=== PATIENT | female | born 1950 | race Caucasian/White ===

== ENCOUNTER → 2021-05-08 | Outpatient (CLI) | payer OTHER | END | disposition home or self-care (01) | LOC: OIH 11:12 | PROVIDERS: ATTEND Internal Medicine Cardiovascular Disease | DX: Z13.6 Encounter for screening for cardiovascular disorders (principal) | CPT/HCPCS: 75571 ==

== ENCOUNTER → 2021-05-27 | Outpatient (CLI) | payer MEDICARE ==
[~2021-05-27] MED LIST: REGADENOSON 0.4 MG/5 ML PF SYG IVP SCH
== END | disposition home or self-care (01) ==
LOC: SHCH 09:52
PROVIDERS: ATTEND Internal Medicine Cardiovascular Disease
DX: R93.1 Abnormal findings on diagnostic imaging of heart and coronary circulation (principal); I10 Essential (primary) hypertension; I73.9 Peripheral vascular disease, unspecified; E78.5 Hyperlipidemia, unspecified; Z95.828 Presence of other vascular implants and grafts; Z82.49 Family history of ischemic heart disease and other diseases of the circulatory system
CPT/HCPCS: 78452; 93017; 96374; A9500 ×2; J2785

== ENCOUNTER 2021-08-28 15:13 | Observation (INO) | payer MEDICARE ==
[~2021-08-28] VITALS: Ht 157.5 cm; Wt 59.9 kg
[~2021-08-28 15:13] MED LIST changes: +AEC81 PO; +AMLO-257 PO; +CILO100T PO; +CLOP75TA14 PO; +EZET10TA48 PO; +LISI20TA24 PO; +METO-408 PO; -REGADENOSON 0.4 MG/5 ML PF SYG IVP SCH; +VENL75 PO
[2021-08-28 15:51] LABS: BASOPHILS % (AUTO) 0.3 % (0.0-5.0); EOSINOPHILS % (AUTO) 3.5 % (0.0-8.0); HEMATOCRIT 24.2 % (36-48); LYMPHOCYTES % (AUTO) 22.4 % (21.0-51.0); MEAN CORPUSCULAR HEMOGLOBIN 28.8 pg (27.0-33.0); MEAN CORPUSCULAR VOLUME 93.1 fL (79-99); MONOCYTES % (AUTO) 11.4 % (3.0-13.0); NEUTROPHILS % (AUTO) 61.7 % (40.0-77.0); PLATELET COUNT (AUTO) 374 K/uL (130-400); RED CELL DISTRIBUTION WIDTH 14.3 % (11.0-15.5); WHITE BLOOD COUNT (AUTO) 6.9 K/uL (4.8-10.8)
[2021-08-28 15:52] LABS: APPEARANCE,URINE Cloudy (CLEAR); BILIRUBIN,URINE Negative (NEGATIVE); COLOR,URINE Yellow (YELLOW); GLUCOSE, URINE (UA) Negative (NEGATIVE); KETONES,URINE Trace mg/dL (NEGATIVE); LEUKOCYTE ESTERASE ,URINE Large (NEGATIVE); NITRATE,URINE Negative (NEGATIVE); OCCULT BLOOD,URINE Negative (NEGATIVE); PROTEIN,URINE Trace mg/dL (NEGATIVE)
[2021-08-28 16:00] LABS: POTASSIUM 3.9 mmol/L (3.5-5.1)
[2021-08-28] MEDS ORDERED: CEFTRIAXONE 1G VIAL IVP ONE (16:00)
[2021-08-28 16:01] LABS: PROTHROMBIN TIME 10.9 SEC (9.6-11.6)
[2021-08-28 16:03] LABS: PARTIAL THROMBOPLASTIN TIME 27.3 SEC (26.3-35.5)
[2021-08-28 16:08] LABS: BACTERIA,URINE Few /HPF (None Seen); MUCUS,URINE Few LPF (None Seen); SQUAMOUS EPITHELIAL CELL,UR Few /HPF (0-2); WBC,URINE 26-50 /HPF (0-1)
[2021-08-28 16:10] LABS: ALBUMIN 3.3 g/dL (3.5-5.0); BILIRUBIN,TOTAL 0.3 mg/dL (0.2-1.0); TOTAL PROTEIN, SERUM 7.8 g/dL (6.0-8.3)
[2021-08-28] MEDS ORDERED: CILO100T PO (17:15)
[2021-08-28] MEDS ORDERED: VENL75 PO (17:15)
[2021-08-28] MEDS ORDERED: AEC81 PO (17:15)
[2021-08-28] MEDS ORDERED: ZINC50CA2 PO (17:15)
[2021-08-28] MEDS ORDERED: AMLO-257 PO (17:15)
[2021-08-28] MEDS ORDERED: LISI20TA24 PO (17:15)
[2021-08-28] MEDS ORDERED: EZET10TA48 PO (17:15)
[2021-08-28] MEDS ORDERED: METO-408 PO (17:15)
[2021-08-28] MEDS ORDERED: DORZ10DR10 OP (17:16)
[2021-08-28] MEDS ORDERED: BIOT10006 PO (17:16)
[2021-08-28] MEDS ORDERED: UBID200C18 PO (17:16)
[2021-08-28] MEDS: 0.9%NACL 1000ML 1,000 ML IV SCH (18:22)
[2021-08-28] MEDS: PANTOPRAZOLE 40 MG/VIAL IVP SCH (18:22)
[2021-08-28] MEDS ORDERED: ONDANSETRON 4MG INJ IV PRN (21:30)
[2021-08-28] MEDS ORDERED: KCL 20 MEQ ERTAB PO PRN (21:30)
[2021-08-28] MEDS ORDERED: LACTULOSE 20 GM/30 ML UDCUP PO PRN (21:30)
[2021-08-28] MEDS ORDERED: POTASSIUM CHLORIDE 10% ELIXIR 20 MEQ/15 ML UDCUP PO PRN (21:30)
[2021-08-28] MEDS ORDERED: MAG/ALUM/SIMETH 30 ML UDCUP PO PRN (21:30)
[2021-08-28] MEDS ORDERED: POTASSIUM CHLORIDE 20MEQ/100ML 100 ML IV PRN ×2 (21:30)
[2021-08-28] MEDS ORDERED: DiphenhydrAMINE HCL 50 MG/ML VIAL IV PRN (21:30)
[2021-08-28] MEDS ORDERED: LIDOCAINE HCL-MPF 1% 2ML VIAL IV PRN ×2 (21:30)
[2021-08-28] MEDS: CEFTRIAXONE 1G VIAL IV SCH (21:30)
[2021-08-28] MEDS ORDERED: ACETAMINOPHEN 325 MG TAB PO PRN ×2 (21:30)
[2021-08-28 21:35] LABS: HEMATOCRIT 25.6 % (36-48)
[2021-08-29] VITALS (21 sets, daily range): BP systolic 119–161; BP diastolic 63–85
[2021-08-29 01:45] LABS: HEMATOCRIT 24.1 % (36-48)
[2021-08-29] MEDS ORDERED: ATOR40TA71 PO (03:00)
[2021-08-29 04:29] LABS: CREATININE 0.9 mg/dL (0.5-1.5); POTASSIUM 3.7 mmol/L (3.5-5.1)
[2021-08-29] MEDS: VENLAFAXINE HCL 75 MG TAB PO SCH ×2 (07:21→21:00)
[2021-08-29] MEDS: 0.9%NACL 1000ML 1,000 ML IV SCH ×3 (07:43→13:34)
[2021-08-29] MEDS: DORZOLAMIDE HCL/TIMOLOL MALEAT DROPS 10 ML BOTTLE OP SCH ×2 (07:43→21:00)
[2021-08-29] MEDS: PANTOPRAZOLE 40 MG/VIAL IVP SCH (07:43)
[2021-08-29 09:54] LABS: HEMATOCRIT 24.5 % (36-48)
[2021-08-29] MEDS ORDERED: LIDOCAINE HCL 1% 20 ML VIAL ONE (12:37)
[2021-08-29] MEDS ORDERED: PROPOFOL 10 MG/ML 20ML VIAL IV ONE (12:37)
[2021-08-29] MEDS: CEFTRIAXONE 1G VIAL IV SCH (21:18)
[2021-08-30] MEDS: 0.9%NACL 1000ML 1,000 ML IV SCH ×2 (00:28→08:44)
[2021-08-30 04:05] VITALS: BP 128/72
[2021-08-30 07:15] VITALS: BP 140/75
[2021-08-30] MEDS: DORZOLAMIDE HCL/TIMOLOL MALEAT DROPS 10 ML BOTTLE OP SCH (08:46)
[2021-08-30] MEDS: PANTOPRAZOLE 40 MG/VIAL IVP SCH (08:46)
[2021-08-30] MEDS: VENLAFAXINE HCL 75 MG TAB PO SCH (08:46)
[2021-08-30 11:15] VITALS: BP 151/90
[2021-08-30] MEDS ORDERED: CEPH500C2 PO (13:52)
[2021-08-30] MEDS ORDERED: FERR-72 PO (13:52)
[2021-08-30 14:29] LABS: MEAN CORPUSCULAR HEMOGLOBIN 29.4 pg (27.0-33.0); MEAN CORPUSCULAR VOLUME 91.9 fL (79-99); RED BLOOD CELL COUNT(AUTO) 2.72 MIL/uL (4.00-5.50); RED CELL DISTRIBUTION WIDTH 13.8 % (11.0-15.5); WHITE BLOOD COUNT (AUTO) 6.2 K/uL (4.8-10.8)
== END 2021-08-30 14:18 | disposition home or self-care (01) ==
LOC: EDH 15:13 → EDHIP 17:28 → 4CH 08-29 00:12
PROVIDERS: ADMIT Internal Medicine; ATTEND Internal Medicine
DX: K92.1 Melena (principal); Z20.822 Contact with and (suspected) exposure to COVID-19; D62 Acute posthemorrhagic anemia; N39.0 Urinary tract infection, site not specified; B96.20 Unspecified Escherichia coli [E. coli] as the cause of diseases classified elsewhere; E78.5 Hyperlipidemia, unspecified; F32.1 Major depressive disorder, single episode, moderate; I12.9 Hypertensive chronic kidney disease with stage 1 through stage 4 chronic kidney disease, or unspecified chronic kidney disease; N18.2 Chronic kidney disease, stage 2 (mild); H40.9 Unspecified glaucoma; I73.9 Peripheral vascular disease, unspecified; I72.4 Aneurysm of artery of lower extremity; I95.9 Hypotension, unspecified; E86.1 Hypovolemia; Z90.710 Acquired absence of both cervix and uterus; Z79.899 Other long term (current) drug therapy; Z79.02 Long term (current) use of antithrombotics/antiplatelets; Z79.82 Long term (current) use of aspirin
CPT/HCPCS: 36415 ×3; 36430; 43235; 71045; 80048; 80053; 81001; 82270; 84484; 85014 ×4; 85018 ×4; 85025; 85027; 85610; 85730; 86850; 86900; 86901; 86923; 87077; 87088; 87186; 87635; 93005 ×2; 96361 ×3; 96374; 96375; 96376 ×2; 99285; A4215; A4606; A4620; A4657; C9113 ×3; G0378 ×38; J0696 ×2; J2704; J7030 ×4; P9016

== ENCOUNTER → 2022-09-03 | Outpatient (CLI) | payer MEDICARE ==
[~2022-09-03] MED LIST changes: -AMLO-257 PO; +ATOR40TA71 PO; +BIOT10006 PO; +CEPH500C2 PO; -CILO100T PO; +CILO100T3 PO; -CLOP75TA14 PO; +DORZ10DR10 OP; +FERR-72 PO; -LISI20TA24 PO; +UBID200C18 PO; +ZINC50CA2 PO
[2022-09-03 12:02] LABS: BASOPHILS % (AUTO) 0.5 % (0.0-5.0); EOSINOPHILS % (AUTO) 3.2 % (0.0-8.0); HEMATOCRIT 27.3 % (36-48); LYMPHOCYTES % (AUTO) 25.4 % (21.0-51.0); MEAN CORPUSCULAR HEMOGLOBIN 23.3 pg (27.0-33.0); MEAN CORPUSCULAR HGB CONC 29.3 g/dL (32.0-36.0); MEAN CORPUSCULAR VOLUME 79.6 fL (79-99); MONOCYTES % (AUTO) 8.9 % (3.0-13.0); NEUTROPHILS % (AUTO) 61.6 % (40.0-77.0); PLATELET COUNT (AUTO) 398 K/uL (130-400); RED BLOOD CELL COUNT(AUTO) 3.43 MIL/uL (4.00-5.50); RED CELL DISTRIBUTION WIDTH 19.2 % (11.0-15.5); WHITE BLOOD COUNT (AUTO) 7.8 K/uL (4.8-10.8)
[2022-09-03 12:12] LABS: HEMOGLOBIN A1C 4.7 % (4.0-6.0)
[2022-09-03 12:29] LABS: ALBUMIN 3.7 g/dL (3.5-5.0); CREATININE 0.9 mg/dL (0.5-1.5); MAGNESIUM 1.7 mg/dL (1.80-2.40); POTASSIUM 4.1 mmol/L (3.5-5.1); THYROID STIMULATING HORMONE 1.75 uIU/mL (0.36-3.74); TOTAL PROTEIN, SERUM 7.6 g/dL (6.0-8.3)
== END | disposition home or self-care (01) ==
LOC: LAB 10:39
PROVIDERS: ATTEND Physician Assistant
DX: I10 Essential (primary) hypertension (principal); E78.5 Hyperlipidemia, unspecified; I73.9 Peripheral vascular disease, unspecified; Z95.828 Presence of other vascular implants and grafts; Z79.82 Long term (current) use of aspirin; Z79.02 Long term (current) use of antithrombotics/antiplatelets; Z79.899 Other long term (current) drug therapy
CPT/HCPCS: 36415; 80053; 80061; 83036; 83735; 83880; 84436; 84443; 84479; 85025

== ENCOUNTER → 2022-09-30 | Outpatient (CLI) | payer MEDICARE | END | disposition home or self-care (01) | LOC: SHCH 12:58 | PROVIDERS: ATTEND Internal Medicine Cardiovascular Disease | DX: I35.8 Other nonrheumatic aortic valve disorders (principal); I11.9 Hypertensive heart disease without heart failure; I65.23 Occlusion and stenosis of bilateral carotid arteries; I73.9 Peripheral vascular disease, unspecified | CPT/HCPCS: 93306; 93880 ==

== ENCOUNTER → 2022-10-03 | Outpatient (CLI) | payer MEDICARE ==
[~2022-10-03] MED LIST changes: +REGADENOSON 0.4 MG/5 ML PF SYG IVP ONE
== END | disposition home or self-care (01) ==
LOC: SHCH 08:43
PROVIDERS: ATTEND Internal Medicine Cardiovascular Disease
DX: R07.89 Other chest pain (principal); R93.1 Abnormal findings on diagnostic imaging of heart and coronary circulation; I73.9 Peripheral vascular disease, unspecified; I10 Essential (primary) hypertension; E78.5 Hyperlipidemia, unspecified
CPT/HCPCS: 78452; 96374; 93017; J2785; A9500 ×2